=== PATIENT | male | born 1960 | race Caucasian/White ===

== ENCOUNTER 2019-03-14 03:45 | Inpatient (IN) | payer OTHER, MEDICAID ==
[~2019-03-14] VITALS: Ht 177.8 cm; Wt 88.5 kg
--- NOTE | 2019-03-14 04:09 | NUR ---
PT BIBA TO ED WITH C/C OF BLOOD IN VOMIT AND STOOL X2 DAYS. PER MEDIC, PT NOTED TO HAVE BRIGHT RED BLOOD IN STOOL AND LIGHT PINK COLOR TO VOMIT. PER PT, HE HAS BLADDER CANCER. NO ACTIVE VOMITING NOTED. PT DENIES ANY OTHER RELATED SYMPTOMS AT THIS TIME. PT DENIES SI/HI AND REPORTS THAT HE DOES NOT HAVE A PLAN TO HARM HIMSELF. PER MEDIC, PT WALKED INTO [facility] AND WAS NOT PLACED ON A HOLD. PT IS CALM AND COOPERATIVE, AAOX4, RESP E/U, REPORTS BURNING SENSATION IN STOMACH, BUT DENIES PAIN WITH PALPATION TO ABDOMEN, NAD NOTED. AWAITING MSE.
--- NOTE | 2019-03-14 04:52 | NUR ---
PT MEDICATED PER MD ORDER. PT IS LAYING IN GURNEY, RESTING, RESP E/U, NAD NOTED.
[2019-03-14 05:02] LABS: BASOPHIL % 0.9 % (0-2); PLATELET COUNT 304 x10^3mcL (130-400); RED CELL DISTRIBUTION WIDTH 12.7 % (11.5-14.5)
[2019-03-14 05:06] LABS: CALCIUM 8.3 mg/dL (8.5-10.1); CARBON DIOXIDE 31.3 mmol/L (21-32); CHLORIDE SERUM 106 mmol/L (98-107); CREATININE SERUM 0.9 mg/dL (0.7-1.3); GFR1 > 60 mL/min; GLUCOSE SERUM 122 mg/dL (74-106); POTASSIUM SERUM 3.3 mmol/L (3.5-5.1); SODIUM SERUM 144 mmol/L (136-145)
[2019-03-14 05:11] LABS: ALKALINE PHOSPHATASE 76 U/L (46-116); ALT/SGPT 26 U/L (16-63); AST/SGOT 10 U/L (15-37); BILIRUBIN TOTAL 0.2 mg/dL (0.20-1.00); LIPASE 133 IU/L (73-393)
[2019-03-14 05:12] LABS: ALBUMIN 3.2 g/dL (3.4-5.0); TOTAL PROTEIN, SERUM 5.8 g/dL (6.4-8.2)
[2019-03-14] MEDS ORDERED: SEROQUEL300 MG PO (06:03)
[2019-03-14] MEDS ORDERED: PRAZOSIN HYDROCH2 MG PO (06:03)
[2019-03-14] MEDS ORDERED: FLOMAX0.4 MG PO (06:03)
[2019-03-14] MEDS ORDERED: PEPCID20 MG PO (06:04)
[2019-03-14] MEDS ORDERED: COLACE100 MG PO (06:04)
[2019-03-14] MEDS ORDERED: ASPIR 8181 MG PO (06:04)
[2019-03-14] MEDS ORDERED: TYLENOL325 M2 PO (06:05)
[2019-03-14] MEDS ORDERED: MOM PO (06:05)
[2019-03-14] MEDS ORDERED: MP PO (06:05)
[2019-03-14] MEDS ORDERED: ATIVAN1 MG PO (06:05)
[2019-03-14] MEDS ORDERED: ALBUTEROL SULFAT0.51 (06:06)
[2019-03-14] MEDS ORDERED: AMBIEN10 MG PO (06:06)
[2019-03-14 06:55] LABS: CHOLESTEROL/HDL RATIO 3.3; MAGNESIUM 2.1 mg/dL (1.8-2.4); PHOSPHOROUS 3.8 mg/dL (2.5-4.9)
--- NOTE | 2019-03-14 07:04 | NUR ---
PT LAYING IN GURNEY, ASLEEP, GOOD CHEST RISE AND FALL NOTED, RESP E/U, NAD NOTED.
--- NOTE | 2019-03-14 07:11 | NUR ---
REPORT GIVEN TO CLAIR LUCAS TO ASSUME CARE OF PT.
--- NOTE | 2019-03-14 07:13 | NUR ---
RECEIVED REPORT FROM GLADYS JAY RN, I WILL ASSUME FURTHER CARE OF THIS PATIENT.
--- NOTE | 2019-03-14 07:20 | NUR ---
PT TAKEN OFF THE ER FLOOR TO CT VIA [facility].
--- NOTE | 2019-03-14 07:36 | NUR ---
PT RETURNED TO ER FLOOR FORM CT [facility]IA [facility]
--- NOTE | 2019-03-14 07:45 | NUR ---
REPORT GIVEN TO SONIDO SELF ON TELE UNIT, WHO WILL ASSUME FURTHER CARE OF THIS PATIENT.
--- NOTE | 2019-03-14 08:30 | NUR ---
RECEIVED PT FROM ER. ADMISSION ASSESSMENT AND HISTORY IS DONE, DENIES ANY PAIN. STABLE. SAFTEY PRECAUTIONS ARE IN PLACE. WILL MONITOR.
[2019-03-14 09:23] LABS: IRON 66 ug/dL (65-170); TOTAL IRON BINDING CAPACITY 329 ug/dL (250-450)
--- NOTE | 2019-03-14 10:02 | NUR ---
PT REFUSED EKG, STATED NO AND TO GET OUT OF HIS ROOM. RN MADE AWARE.
[2019-03-14 10:58] VITALS: BP 102/75
--- NOTE | 2019-03-14 12:15 | NUR ---
PT IS VERY ANXIOUS, WALKING AROUND IN THE HALLWAY, SCREAMING. INFORMED ABOUT THAT PT. ADMINISTERED ATIVAN 1MG PO AND SEREQUEL PO ORDERED. ASSISTED PT BACK IN THE BED. STABLE. WILL CLOSELY MONITOR.
[2019-03-14 12:45] VITALS: BP 114/82
--- NOTE | 2019-03-14 13:02 | NUR ---
PT C/O ABD PAIN AND REQUESTED FOR MORPHIN IV, GIVEN AT 1232 AND REASSESSED NOW. PT IS SLEEPING. STABLE. V/S STABLE. WILL MONITOR.
[2019-03-14 16:04] VITALS: BP 123/87
--- NOTE | 2019-03-14 16:53 | NUR ---
PT C/O ABD PAIN AND REQUESTED FOR MORPHIN IV, GIVEN AT 1623 AND REASSESSED NOW, PT IS ASLEEP. WILL MONITOR.
--- NOTE | 2019-03-14 19:20 | NUR ---
PT IS SLEEPING THIS TIME. STABLE. DENIES ANY PAIN. GAVE REPORT TO MACHINE LACER NURSE.
--- NOTE | 2019-03-14 19:50 | NUR ---
PATIENT RECEIVED IN BED WACTHING TV DURING BEDSIDE HANDS OFF REPORT, PATIENT WHEN ASKED QUESTIONS APPEARED TO BE TENSE AND ANXIOUS, ORIENTED X3, FORGETFUL. BREATHING EVEN AND UNLABORED , ON ROOM AIR SAT 97%,DENIED SOB. DENIED CHEST PAINS, HR=70BPM, TELE#3 NSR, RHYTHM REGULAR.IV SITE NO SIGN OF INFILTRATION NO REDNESS AT SITE, SECURED TAPE. PATIENT STATES WITH DULL ABDOMINAL DISCOMFORTS, RATED AT 3/10 INFORMED ABOUT PAIN MANAGEMENT. PATIENT INFORMED ABOUT POC THIS SHIFT, ALL QUESTIONS AND CONCERNS ADDRESSED. WILL CONTINUE TO MONITOR.
[2019-03-14 20:20] VITALS: BP 104/71
[2019-03-14 21:10] VITALS: BP 112/79
--- NOTE | 2019-03-14 21:34 | NUR ---
SCHEDULED MEDS ADMINISTERED THIS TIME, PATIENT INFORMED ABOUT EACH MEDS ACTIONS AND PURPOSE PRIOR. PATIENT C/O ABOMINAL PAIN RATED AT 7/10 MEDICATED PRN, ASLO REQUESTED FOR INSOMNIA PILL. AMBIEN 10 MG PO GIVEN. WILL RE-ASSESS EFFECTIVENESS OF PAIN MEDS .
--- NOTE | 2019-03-15 00:13 | NUR ---
ROUNDS MADE PATIENT AWAKE, REQUESTING FOR PAIN MEDS, MEDICATED PRN. ALSO COLLECTED STOOL AND SEND TO LAB. SAFETY MAINTAINED. WILL CONTINUE TO MONITOR.
[2019-03-15 00:55] LABS: microscopic required? YES; urine erythrocyte TRACE (NEGATIVE)
[2019-03-15 01:11] LABS: AMPHETAMINE QUAL UR NONE DETECTED (See below)
--- NOTE | 2019-03-15 04:42 | NUR ---
COMPLAINED OF ABDOMINAL PAIN, RATED AT 7/10, KW=553/78, MEDICATED PRN.
[2019-03-15 06:06] LABS: BASOPHIL % 0.8 % (0-2); PLATELET COUNT 272 x10^3mcL (130-400); RED CELL DISTRIBUTION WIDTH 13.4 % (11.5-14.5)
[2019-03-15 06:23] VITALS: BP 119/77
--- NOTE | 2019-03-15 06:32 | NUR ---
PATIENT SLEPT WELL AND RESTED GOOD DURING THE SHIFT, ONLY AWAKEN WHEN PAIN IS EXPERIENCED. MEDICATED PRN. AMBULATORY WITH STEADY. HAD BLACK TARRY STOOL NOTED ON TOILET, SPECIMEN SEND FOR OB. IV SITE NO SIGN OF INFILTRATION. SFETY/FALL PRECAUTIONS OBSERVED AND MAINTAINED. WILL ENDORSE CONTINUITY OF CARE TO INCOMING NURSE.
[2019-03-15 06:35] LABS: CALCIUM 8.5 mg/dL (8.5-10.1); CHLORIDE SERUM 106 mmol/L (98-107); GFR1 > 60 mL/min; GLUCOSE SERUM 89 mg/dL (74-106); MAGNESIUM 1.9 mg/dL (1.8-2.4); PHOSPHOROUS 4.4 mg/dL (2.5-4.9); POTASSIUM SERUM 4.1 mmol/L (3.5-5.1); SODIUM SERUM 142 mmol/L (136-145)
--- NOTE | 2019-03-15 07:34 | NUR ---
BEDSIDE HANDS OFF REPORT AND INTRODUCTION PERFORMED WITH INCOMING NURSE ELIJAH-CLAIR.
--- NOTE | 2019-03-15 07:43 | NUR ---
RECEIVED PATIENT FROM CLAIR CONNOR. PATIENT SEATED UP TO BED, EATING BREAKFAST TRAY. PATIENT ALSO OBSERVED AMBULATING AROUND UNIT. SPOKE WITH PATIENT ABOUT PLAN OF CARE TODAY AND PATIENT AGREES TO MEDICATION REGIMENT. WILL WAIT FOR CARE TEAM TO COME SPEAK WITH PATIENT, CALL LIGHT IN REACH AT THIS TIME.
[2019-03-15 09:00] VITALS: BP 113/80
--- NOTE | 2019-03-15 10:34 | NUR ---
DR VALLADARES IN TO SPEAK WITH PATIENT, UPDATED DR VALLADARES ABOUT DARK TARRY STOOL. DR VALLADARES STATES HE WILL DO COLONOSCOPY TOMORROW AND EXPLAINED TO PATIENT. PATIENT AGREES AND VERBALIZES UNDERSTANDING. WILL ENFORCE PATIENT TO BE NPO AT MIDNIGHT AND TO TAKE SCHEDULED LAXATIVES TO CLEAR BOWELS. CALL LIGHT IN REACH AT THIS TIME.
[2019-03-15 12:06] VITALS: BP 110/80
[2019-03-15 15:49] VITALS: BP 122/77
--- NOTE | 2019-03-15 18:51 | NUR ---
PATIENT SLEEPING IN BED AT THIS TIME. PATIENT STATES HE NORMALLY TAKES HIS SEROQUEL AT NIGHT SO HE CAN SLEEP, PATIENT AWARE THAT HIS HAS PRN AMBIEN TONIGHT. PATIENT HAS COMPLETED FIRST BOTTLE OF SUPREP AND IS AWARE TO COMPLETE SECOND BOTTLE TONIGHT FOR COLONOSCOPY TOMORROW. PATIENT IV ACCIDENTALLY REMOVED AND WILL ENDORSE TO ONCOMING NURSE. CALL LIGHT IN REACH.
--- NOTE | 2019-03-15 19:25 | NUR ---
PT RECEIVED A/O X4, ABLE TO MAKE NEEDS KNOWN, LIP SMACKING NOTED. TELE #3, NSR, PT DENIES ANY CP/PRESSURE. BREATHING IS EVEN AND UNLABORED ON RA, NO RESP DISTRESS NOTED. ABD SOFT AND ROUND, DENIES N/V. PT CONTINUES ON BOWEL PREP AT THIS TIME AND WILL BE NPO AFTER MIDNIGHT FOR SCHEDULED EGD WITH COLONOSCOPY. PT REPORTS WATERY STOOL, BROWN IN COLOR. VOIDS FREELY, BRP. AMBULATORY WTIH STEADY GAIT. PT DENIES PAIN AT THIS TIME. NO IV ACCESS AVAILABLE, WILL ATTEMPT NEW IV. NO ACUTE DISTRESS NOTED. BED IN LOWEST SETTING, SIDE RAILS UP X2, CALL LIGHT WITHIN REACH. WILL CONT TO MONITOR.
[2019-03-15 20:30] VITALS: BP 113/74
--- NOTE | 2019-03-15 20:30 | NUR ---
PT C/O 10/08 ABD PAIN, PRN MORPHINE IVP GIVEN ORDERED. PT CONTINUING ON SECOND BOTTLE OF BOWEL PREP. PT HAD BM X1, BROWN AND WATERY. WILL CONT TO MONITOR.
--- NOTE | 2019-03-16 05:11 | NUR ---
PT C/O 8 ABD PAIN, PRN PAIN MED GIVEN ORDERED. NO ACUTE DISTRESS NOTED. WILL CONT TO MONITOR.
[2019-03-16 05:31] VITALS: BP 147/88
--- NOTE | 2019-03-16 06:14 | NUR ---
PT C/O ANXIETY AND HAS NO PRN ANTIANXIETY MEDS, PT ONLY HAS SCHEDULED PO MEDS BUT HAS EGD WITH COLONOSCOPY TODAY. DR BEATTY MADE AWARE. AWAITING ORDERS AT THIS TIME.
--- NOTE | 2019-03-16 06:57 | NUR ---
PT'S STOOL WATERY, BUT REMAINS LIGHT BROWN IN COLOR. DR VALLADARES CALLED AND MADE AWARE, PER PHYSICIAN, "THAT'S FINE." NO NEW ORDERS RECEIVED.
[2019-03-16 07:04] LABS: BASOPHIL % 0.8 % (0-2); PLATELET COUNT 282 x10^3mcL (130-400); RED CELL DISTRIBUTION WIDTH 13.2 % (11.5-14.5)
--- NOTE | 2019-03-16 07:30 | NUR ---
PT ENDORSE TO ME THIS MORNING, LAYING IN BED RESTING, AA/O X4, BREATHING EVEN AND UNLABORED ON RA NO ACUTE RESP DISTRESS OR SOB NOTED. TELE 3 NSR DENIES ANY CP OR PRESSURE. CURRENTLY NPO FOR AM PROCEDURE IN GI LAB, LAST BM 03/16 LOOSE CLEAR BROWN COLOR NOTED. VOIDS FREELY. AMB. VOIDS FREELY. IV TO THE L HAND INTACT AND PATENT/ HEPLOCKED/ REFUSING IV NS, DOC MADE AWARE. WILL CONTINUE TO MONITOR.
[2019-03-16 07:32] LABS: CARBON DIOXIDE 32.1 mmol/L (21-32); CHLORIDE SERUM 103 mmol/L (98-107); GLUCOSE SERUM 92 mg/dL (74-106); SODIUM SERUM 140 mmol/L (136-145)
[2019-03-16 07:33] LABS: CALCIUM 8.8 mg/dL (8.5-10.1); GFR1 > 60 mL/min; MAGNESIUM 2.2 mg/dL (1.8-2.4); PHOSPHOROUS 3.4 mg/dL (2.5-4.9)
--- NOTE | 2019-03-16 07:56 | NUR ---
PT SLEPT AT INTERVALS THROUGHOUT THE EVENING. NO ACUTE CHANGES ENCOUNTERED DURING SHIFT. ALL NEEDS MET AND ANTICIPATED. CALL LIGHT WITHIN REACH. PT NPO FOR EGD WITH COLONOSCOPY. CONTINUITY OF CARE ENDORSED TO AM NURSE.
--- NOTE | 2019-03-16 07:57 | NUR ---
REPORT GIVEN TO GI /RN WILL CALLED BACK WITH NIGHT WORKER TIME.
[2019-03-16 08:20] VITALS: BP 113/79
--- NOTE | 2019-03-16 08:54 | NUR ---
PT TAKEN TO GI LAB FOR PROCEDURE. AA/O X4, BREATHING EVEN AND UNLABORED ON RA, NO ACUTE RESP DISTRESS OR SOB NOTED. TELE MONITOR AWARE. WILL CONTINUE TO MONITOR WHEN PT RETURNS TO FLOOR.
[2019-03-16 10:59] VITALS: BP 109/74
--- NOTE | 2019-03-16 11:00 | NUR ---
PT BACK FROM EGD/ BREATHING EVEN AND UNLABORED ON 2L NC SATING AT 94% NO ACUTE RESP DISTRESS OR SOB NOTED. SC=868/74, HR 70 NO SIGN OF CP OR PRESSURE. PER DR. NOONAN ORDERS PT IS NOW MEDSURG. WILL CONTINUE TO MONITOR.
--- NOTE | 2019-03-16 11:45 | NUR ---
LAB CALLED PT + MRSA NARES /CONTACT ISOLATION INPLACE/ DR. NOONAN MADE AWARE.
[2019-03-16 13:07] VITALS: BP 128/92
[2019-03-16 16:07] VITALS: Ht 177.8 cm; Wt 88.5 kg
[2019-03-16 16:34] VITALS: BP 111/68
--- NOTE | 2019-03-16 16:42 | NUR ---
[facility] has received psych referral however spoke with social studies teacher, Keiko, and patient is not medically clear. Will hold referral until we receive call back to proceed with placement.
--- NOTE | 2019-03-16 18:47 | NUR ---
NO ACUTE CHANGES AT THIS TIME, NO ACUTE RESP DISTRESS OR SOB NOTED. IV TO THE LHAND INTACT AND PATENT/ REFUSING IV NS/ DR. NOONAN AWARE. DENIES ANY CP OR PRESSURE. WILL ENDORSE TO INCOMING RN.
--- NOTE | 2019-03-16 19:30 | NUR ---
RECEIVED PT FROM AM NURSE. PT AWAKE LAYING DOWN IN BED. AAOX4, ABLE TO FOLLOW COMMANDS AND MAKE NEEDS KNOWN. MED-SURG, DENIES CP/PRESSUE AT THIS TIME. PALPABLE PULSES TO ALL EXTREMETIES, NO EDEMA NOTED. LUGN SOUND CTA, BREATHING EVEN AND UNLABORED ON RA. ABD SOFT AND NONDISTENDED, ACTIVE BS X4 QUAD. PT STATES HAVING LOOSE STOOLS EARLIER DUE TO BE IN BOWEL PREP. VOIDS FREELY, BRP. AMBULATORY. IV TO LH SALINE LOCKED, PT REFUSING IV FLUIDS. AWARE. NO ACUTE DISTRESS NOTED. BED AT LOWEST SETTING. SIDE RAILS X2 UP. CALL LIGHT WITHING REACH. WILL CONT TO MONITOR.
[2019-03-16 20:30] VITALS: BP 145/99
--- NOTE | 2019-03-17 00:08 | NUR ---
PT LAYING DOWN IN BED WITH EYES CLOSED, BREATHING EVEN AND UNLABORED ON RA. NO ACUTE DISTRESS NOTED. SAFETY PRECAUTIONS IN PLACE. CALL LIGHT WITHIN REACH. WILL CONT TO MONITOR.
--- NOTE | 2019-03-17 05:44 | NUR ---
PT SLEPT WELL THROGHOUT THE NIGHT, BREATHING EVEN AND UNLABORED ON RA. NO SIGNIFICANT CHANGES DURING SHIFT. ALL NEEDS ASSESSED AND ATTENDED TO. SAFETY PRECAUTIONS IN PLACE. NO ACUTE DISTRESS NOTED. CALL LIGHT WITHING REACH. WILL CONT TO MONITOR AND EDORSE CARE TO AM NURSE.
[2019-03-17 05:50] VITALS: BP 135/70
--- NOTE | 2019-03-17 06:41 | NUR ---
[facility] to continue monitoring pt notes. Will assist with finding psych placement if indicated following medical clearance/ psych eval.
[2019-03-17 07:19] LABS: BASOPHIL % 0.8 % (0-2); PLATELET COUNT 278 x10^3mcL (130-400); RED CELL DISTRIBUTION WIDTH 13.4 % (11.5-14.5)
--- NOTE | 2019-03-17 07:40 | NUR ---
RECEIVED PATIENT RESTING IN BED, NO ACUTE DISTRESS NOTED. PATIENTS LUNG SOUNDS CLEAR BILATERALLY, ON ROOM AIR. PATIENTS DENIES LOOSE STOOLS, AND DENIES BLEEDING. PATIENT AMBULATORY WITH NO ASSISTANCE. IV TO LEFT HAND SALINE LOCK, CDI&PATENT. ALL NEEDS MET AT THIS TIME. CALL LIGHT WITHIN REACH, BED IN LOW POSITION. WILL CONTINUE TO MONITOR FOR CHANGES.
[2019-03-17 07:54] LABS: CARBON DIOXIDE 31 mmol/L (21-32); CHLORIDE SERUM 103 mmol/L (98-107); POTASSIUM SERUM 4.4 mmol/L (3.5-5.1); SODIUM SERUM 140 mmol/L (136-145)
[2019-03-17 07:55] LABS: CREATININE SERUM 0.9 mg/dL (0.7-1.3); GFR1 > 60 mL/min; GLUCOSE SERUM 91 mg/dL (74-106); MAGNESIUM 1.8 mg/dL (1.8-2.4); PHOSPHOROUS 4.2 mg/dL (2.5-4.9)
[2019-03-17 08:54] VITALS: BP 140/96
--- NOTE | 2019-03-17 11:00 | NUR ---
PATIENT IS UP AND AMBULATING HALLWAY, NO ACUTE DISTRESS NOTED. PATIENT DENIES SOB, ON ROOM AIR. STEADY GAIT NOTED. WILL CONTINUE TO MONITOR FOR CHANGES.
[2019-03-17] MEDS ORDERED: PRI20 PO (12:09)
[2019-03-17] MEDS ORDERED: LAC30L PO (12:11)
[2019-03-17 12:22] VITALS: BP 92/67
[2019-03-17 13:22] VITALS: BP 92/67
--- NOTE | 2019-03-17 13:30 | NUR ---
PATIENT RECEIVED COPY OF DISCHARGE INSTRUCTION, PATIENT UNDERSTANDS AND AGREES WITH DISCHARGE INSTRUCTIONS AND PLAN OF CARE, INCLUDING MEDICATIONS AND FOLLOW UP WITH PCP. ALL QUESTIONS AND CONCERNS ADDRESSED. IV TO LEFT HAND REMOVED, CATH INTACT. ARMBAND REMOVED. PATIENT VERBALIZED HE WILL BE STAYING WITH FAMILY, TAXI RIDE ARRANGED.
== END 2019-03-17 13:48 | disposition home or self-care (01) | DRG 378 ==
LOC: ED 03:45 → MU 06:39 → DU 06:39 → MU 03-16 11:01
PROVIDERS: Emergency Medicine; Internal Medicine; Internal Medicine Gastroenterology; ADMIT Family Medicine
PROC: 0DB78ZX Excision of Stomach, Pylorus, Via Natural or Artificial Opening Endoscopic, Diagnostic (ICD-10-PCS; principal; 2019-03-16 09:00)
PROC: 0DJD8ZZ Inspection of Lower Intestinal Tract, Via Natural or Artificial Opening Endoscopic (ICD-10-PCS; 2019-03-16 09:00)
DX: K92.2 Gastrointestinal hemorrhage, unspecified (principal); E44.0 Moderate protein-calorie malnutrition; K21.0 Gastro-esophageal reflux disease with esophagitis; E83.51 Hypocalcemia; E87.6 Hypokalemia; I25.10 Atherosclerotic heart disease of native coronary artery without angina pectoris; I10 Essential (primary) hypertension; J44.9 Chronic obstructive pulmonary disease, unspecified; I25.2 Old myocardial infarction; Z79.82 Long term (current) use of aspirin; Z68.27 Body mass index [BMI] 27.0-27.9, adult; F17.210 Nicotine dependence, cigarettes, uncomplicated; Z85.51 Personal history of malignant neoplasm of bladder; Z87.828 Personal history of other (healed) physical injury and trauma; Z22.322 Carrier or suspected carrier of Methicillin resistant Staphylococcus aureus
CPT/HCPCS: 43235; 45378; 83880; C9113; G0378; J1200; J1610; J2250; J2270; J2310; J3010; J3490; J7030; Q0092; Q9967